=== PATIENT | male | born 1965 | race Two or more races ===

== ENCOUNTER 2023-04-22 14:00 | Inpatient (IN) | payer OTHER ==
[~2023-04-22] VITALS: Ht 170.2 cm; Wt 79.5 kg
[2023-04-22] MEDS ORDERED: INSULIN REGULAR, HUMAN 100 UNITS/ML IVP ONE (14:45)
[2023-04-22] MEDS ORDERED: SODIUM CHLORIDE 0.9% 1,000 ML IV ONE (14:45)
[2023-04-22] MEDS ORDERED: METF-1211 PO (14:46)
[2023-04-22] MEDS ORDERED: ONDANSETRON HCL 4 MG/2 ML VIAL IVP ONE (15:30)
[2023-04-22 15:36] LABS: APPEARANCE,URINE CLEAR (CLEAR); BILIRUBIN,URINE NEGATIVE (NEGATIVE); COLOR,URINE LIGHT YELLOW (YELLOW); GLUCOSE, URINE (UA) >=1000 mg/dL (NEGATIVE); LEUKOCYTE ESTERASE ,URINE NEGATIVE (NEGATIVE); NITRATE,URINE NEGATIVE (NEGATIVE); OCCULT BLOOD,URINE TRACE (NEGATIVE); PROTEIN,URINE 300-600,SEE CONFIRM mg/dL (NEGATIVE); SPECIFIC GRAVITIY, URINE 1.034 (1.003-1.030); UROBILINOGEN,URINE <=1.0 mg/dL (<=1.0)
[2023-04-22 15:36] LABS: BASOPHILS % (AUTO) 0.4 % (0.0-2.0); EOSINOPHILS % (AUTO) 0.3 % (1.0-6.0); HEMATOCRIT 43.7 % (41-53); HEMOGLOBIN 15.1 g/dL (13.5-17.5); LYMPHOCYTES # (AUTO) 1.2 K/uL (1.0-4.8); LYMPHOCYTES % (AUTO) 10.4 % (22.0-44.0); MEAN CORPUSCULAR HGB CONC 34.6 G/dL (31.0-37.0); MEAN CORPUSCULAR VOLUME 90 fL (80-100); MONOCYTES # (AUTO) 0.4 K/uL (0.1-1.0); MONOCYTES % (AUTO) 3.5 % (2.0-9.0); NEUTROPHILS # (AUTO) 10.2 K/uL (1.8-7.7); NEUTROPHILS % (AUTO) 85.4 % (40.0-70.0); PLATELET COUNT (AUTO) 201 K/uL (150-450); RED BLOOD CELL COUNT(AUTO) 4.88 MIL/uL (4.50-5.90); RED CELL DISTRIBUTION WIDTH 13.9 % (11.5-14.5)
[2023-04-22 16:00] LABS: ALANINE AMINOTRANSFERASE 45 U/L (12-78); ALBUMIN 4.2 g/dL (3.4-5.0); ALKALINE PHOSPHATASE 138 U/L (46-116); ANION GAP 12 mmol/L (8-16); ASPARTATE AMINOTRANSFERASE 23 U/L (15-37); BILIRUBIN,TOTAL 0.6 mg/dL (0.1-1.0); CALCIUM, TOTAL 9.9 mg/dL (8.8-10.5); CARBON DIOXIDE 28 mmol/L (22-29); CHLORIDE 94 mmol/L (98-107); CREATININE 1.26 mg/dL (0.60-1.30); GLOMERULAR FILTR. RATE CALC 58 mL/min (>60); LIPASE 28 U/L (16-77); POTASSIUM 3.9 mmol/L (3.5-5.1); SODIUM SERUM 134 mmol/L (136-145); TOTAL PROTEIN, SERUM 9.1 g/dL (6.4-8.2); UREA NITROGEN, BLOOD 22 mg/dL (7-18)
[2023-04-22 16:03] LABS: GLUCOSE,RANDOM 548 mg/dL (70-110); TROPONIN I-HIGH SENSITIVITY 1228 ng/L (<76)
[2023-04-22 16:11] LABS: SULFOSALICYLIC ACID,URINE 4+ (Negative)
[2023-04-22 16:12] LABS: BACTERIA,URINE None Seen /HPF (None Seen); RBC,URINE 0-2 /HPF (0-2)
[2023-04-22] MEDS ORDERED: ASPIRIN 81 MG CHEWABLE TABLET PO ONE (16:15)
[2023-04-22] MEDS ORDERED: HEPARIN SODIUM,PORCINE 5,000 UNITS/ML VIAL IVP PRN ×2 (16:30)
[2023-04-22] MEDS ORDERED: LABETALOL HCL 5 MG/ML 20 ML VIAL IVP ONE (16:30)
[2023-04-22] MEDS ORDERED: HEPARIN SODIUM 25000 UNITS/D5W 250 ML IV PRN (16:30)
[2023-04-22 16:44] LABS: INR 1.1 (0.9-1.1); PROTHROMBIN TIME 11.7 SEC (9.4-11.6)
[2023-04-22] MEDS ORDERED: MORPHINE SULFATE 2 MG/ML SYRINGE IVP PRN (17:00)
[2023-04-22] MEDS ORDERED: INSULIN GLARGINE,HUM.REC.ANLOG 100 UNITS/ML SQ SCH (17:00)
[2023-04-22] MEDS ORDERED: DEXTROSE 50%-WATER 25 GM/50 ML SYRINGE IVP PRN (17:00)
[2023-04-22] MEDS ORDERED: INSULIN LISPRO 100 UNITS/ML SQ PRN (17:00)
[2023-04-22] MEDS ORDERED: ONDANSETRON HCL 4 MG/2 ML VIAL IVP PRN (17:00)
[2023-04-22 18:08] LABS: COVID AG,FIA SOURCE NASAL SWAB
[2023-04-22 18:34] LABS: INFLUENZA TYPE A NEGATIVE FOR TYPE A (NEGATIVE); INFLUENZA TYPE B NEGATIVE FOR TYPE B (NEGATIVE); SARS-COV2 (COVID) ANTIGEN,FIA Negative (Negative)
[2023-04-22 18:49] VITALS: BP 178/95; PULSE 70; RESP 20; TEMP 98.4; O2SAT 99
[2023-04-22] MEDS: ATORVASTATIN CALCIUM 40 MG TABLET PO SCH (18:58)
[2023-04-22] MEDS: LISINOPRIL 20 MG TABLET PO SCH (18:58)
[2023-04-22 19:46] LABS: GLUCOMETER DEV NAME(LOC) 5S.2C; GLUCOSE,POINT OF CARE 474 MG/DL (70-110)
[2023-04-22 19:53] VITALS: BP 171/90; PULSE 72; RESP 20; TEMP 98.3
[2023-04-22 20:31] LABS: GLUCOMETER DEV NAME(LOC) 5S.2C; GLUCOSE,POINT OF CARE 502 MG/DL (70-110)
[2023-04-22] MEDS: FAMOTIDINE 20 MG TABLET PO SCH (20:32)
[2023-04-22] MEDS: DOCUSATE SODIUM 100 MG CAPSULE PO SCH (20:32)
[2023-04-22] MEDS: CARVEDILOL 6.25 MG TABLET PO SCH (20:32)
[2023-04-22] MEDS: INSULIN GLARGINE,HUM.REC.ANLOG 100 UNITS/ML SQ SCH (20:37)
[2023-04-22] MEDS: INSULIN LISPRO 100 UNITS/ML SQ PRN (20:38)
[2023-04-22] MEDS: HydrALAZINE HCL 20 MG/ML VIAL IVP PRN (23:28)
[2023-04-23] VITALS (7 sets, daily range): BP systolic 133–184; BP diastolic 62–111; PULSE 61–87; RESP 18–22; TEMP 98.1–98.6
[2023-04-23] MEDS: INSULIN LISPRO 100 UNITS/ML SQ PRN ×4 (06:19→20:43)
[2023-04-23 06:34] LABS: BASOPHILS % (AUTO) 0.6 % (0.0-2.0); EOSINOPHILS % (AUTO) 1.9 % (1.0-6.0); HEMATOCRIT 37.1 % (41-53); LYMPHOCYTES # (AUTO) 2.8 K/uL (1.0-4.8); LYMPHOCYTES % (AUTO) 26.4 % (22.0-44.0); MEAN CORPUSCULAR HEMOGLOBIN 31.2 pg (26.0-34.0); MEAN CORPUSCULAR HGB CONC 35.3 G/dL (31.0-37.0); MEAN CORPUSCULAR VOLUME 89 fL (80-100); MONOCYTES # (AUTO) 0.8 K/uL (0.1-1.0); MONOCYTES % (AUTO) 8.1 % (2.0-9.0); NEUTROPHILS # (AUTO) 6.6 K/uL (1.8-7.7); PLATELET COUNT (AUTO) 193 K/uL (150-450); RED BLOOD CELL COUNT(AUTO) 4.19 MIL/uL (4.50-5.90); WHITE BLOOD COUNT (AUTO) 10.5 K/uL (4.5-11.0)
[2023-04-23 06:36] LABS: GLUCOMETER DEV NAME(LOC) 5S.1B; GLUCOSE,POINT OF CARE 310 MG/DL (70-110)
[2023-04-23 07:05] LABS: HEMOGLOBIN 13.1 g/dL (13.5-17.5)
[2023-04-23] MEDS: CARVEDILOL 6.25 MG TABLET PO SCH ×2 (08:57→20:43)
[2023-04-23] MEDS: LISINOPRIL 20 MG TABLET PO SCH (08:57)
[2023-04-23] MEDS: DOCUSATE SODIUM 100 MG CAPSULE PO SCH ×2 (08:57→20:42)
[2023-04-23] MEDS: FAMOTIDINE 20 MG TABLET PO SCH ×2 (08:57→20:43)
[2023-04-23] MEDS: ATORVASTATIN CALCIUM 40 MG TABLET PO SCH (08:57)
[2023-04-23] MEDS: INSULIN GLARGINE,HUM.REC.ANLOG 100 UNITS/ML SQ SCH ×2 (08:58→20:46)
[2023-04-23] MEDS ORDERED: HEPARIN SODIUM,PORCINE 5,000 UNITS/ML VIAL IVP ONE (09:15)
[2023-04-23] MEDS ORDERED: HEPARIN SODIUM,PORCINE 5,000 UNITS/ML VIAL IVP PRN ×2 (09:15)
[2023-04-23] MEDS: HEPARIN SODIUM 25000 UNITS/D5W 250 ML IV PRN (09:29)
[2023-04-23 11:12] LABS: INR 1.1 (0.9-1.1); PROTHROMBIN TIME 11.8 SEC (9.4-11.6)
[2023-04-23] MEDS: HydrALAZINE HCL 20 MG/ML VIAL IVP PRN ×2 (14:38→23:05)
[2023-04-23 15:41] LABS: TROPONIN I-HIGH SENSITIVITY 1217 ng/L (<76)
[2023-04-23] MEDS: ACETAMINOPHEN 325 MG TABLET PO PRN (20:42)
[2023-04-23 22:57] LABS: GLUCOMETER DEV NAME(LOC) 5S.1B; GLUCOSE,POINT OF CARE 234 MG/DL (70-110)
[2023-04-23 22:57] LABS: GLUCOMETER DEV NAME(LOC) 5S.2C; GLUCOSE,POINT OF CARE 237 MG/DL (70-110)
[2023-04-23 22:57] LABS: GLUCOMETER DEV NAME(LOC) 5S.1B; GLUCOSE,POINT OF CARE 254 MG/DL (70-110)
[2023-04-24 00:10] VITALS: BP 142/62; PULSE 71; RESP 18; TEMP 97.7
[2023-04-24] MEDS: HEPARIN SODIUM 25000 UNITS/D5W 250 ML IV PRN (02:42)
[2023-04-24 05:26] VITALS: BP 179/87; PULSE 68; RESP 18; TEMP 98.1
[2023-04-24] MEDS: INSULIN LISPRO 100 UNITS/ML SQ PRN ×3 (05:40→21:12)
[2023-04-24 06:44] LABS: BASOPHILS % (AUTO) 0.7 % (0.0-2.0); EOSINOPHILS % (AUTO) 2.8 % (1.0-6.0); HEMATOCRIT 38.1 % (41-53); HEMOGLOBIN 13.1 g/dL (13.5-17.5); LYMPHOCYTES # (AUTO) 2.5 K/uL (1.0-4.8); LYMPHOCYTES % (AUTO) 29.2 % (22.0-44.0); MEAN CORPUSCULAR HEMOGLOBIN 30.7 pg (26.0-34.0); MEAN CORPUSCULAR HGB CONC 34.4 G/dL (31.0-37.0); MEAN CORPUSCULAR VOLUME 89 fL (80-100); MONOCYTES # (AUTO) 0.7 K/uL (0.1-1.0); MONOCYTES % (AUTO) 8.4 % (2.0-9.0); NEUTROPHILS # (AUTO) 4.9 K/uL (1.8-7.7); NEUTROPHILS % (AUTO) 58.9 % (40.0-70.0); PLATELET COUNT (AUTO) 181 K/uL (150-450); RED BLOOD CELL COUNT(AUTO) 4.27 MIL/uL (4.50-5.90); RED CELL DISTRIBUTION WIDTH 14.2 % (11.5-14.5); WHITE BLOOD COUNT (AUTO) 8.4 K/uL (4.5-11.0)
[2023-04-24 08:11] VITALS: BP 149/67; PULSE 62; RESP 18; TEMP 98.3
[2023-04-24] MEDS: DOCUSATE SODIUM 100 MG CAPSULE PO SCH ×2 (09:18→20:24)
[2023-04-24] MEDS: FAMOTIDINE 20 MG TABLET PO SCH ×2 (09:18→20:24)
[2023-04-24] MEDS: LISINOPRIL 20 MG TABLET PO SCH (09:18)
[2023-04-24] MEDS: CARVEDILOL 6.25 MG TABLET PO SCH ×2 (09:18→20:24)
[2023-04-24] MEDS: ATORVASTATIN CALCIUM 40 MG TABLET PO SCH (09:18)
[2023-04-24] MEDS: INSULIN GLARGINE,HUM.REC.ANLOG 100 UNITS/ML SQ SCH ×2 (09:25→21:09)
[2023-04-24 11:41] VITALS: BP 176/63; PULSE 63; RESP 20; TEMP 98.2
[2023-04-24] MEDS ORDERED: VERAPAMIL HCL 2.5 MG/ML 2 ML VIAL ONE (12:53)
[2023-04-24] MEDS ORDERED: IOHEXOL 300 MG/ML 50 ML VIAL ONE (12:53)
[2023-04-24] MEDS ORDERED: IOHEXOL 300 MG/ML 100 ML VIAL ONE (12:54)
[2023-04-24] MEDS ORDERED: SODIUM BICARBONATE 50 MEQ/50 ML VIAL ONE (12:54)
[2023-04-24] MEDS ORDERED: NITROGLYCERIN 50 MG/D5% WATER 250 ML ONE (12:54)
[2023-04-24] MEDS ORDERED: HEPARIN SODIUM 1000 UNITS/NS 1,000 ML ONE (12:54)
[2023-04-24] MEDS ORDERED: LIDOCAINE/PF 1% 30 ML VIAL ONE (12:54)
[2023-04-24 16:06] VITALS: BP 143/77; PULSE 61; RESP 18; TEMP 98.5
[2023-04-24 19:37] VITALS: BP 179/100; PULSE 77; RESP 20; TEMP 98.2
[2023-04-24] MEDS: HydrALAZINE HCL 20 MG/ML VIAL IVP PRN (19:53)
[2023-04-24 20:26] LABS: GLUCOMETER DEV NAME(LOC) 5S.1B; GLUCOSE,POINT OF CARE 185 MG/DL (70-110)
[2023-04-24 20:26] LABS: GLUCOMETER DEV NAME(LOC) 5S.1B; GLUCOSE,POINT OF CARE 187 MG/DL (70-110)
[2023-04-24 23:21] LABS: GLUCOMETER DEV NAME(LOC) 5N.2C; GLUCOSE,POINT OF CARE 251 MG/DL (70-110)
[2023-04-25] VITALS (16 sets, daily range): BP systolic 134–243; BP diastolic 70–131; PULSE 62–85; RESP 17–20; TEMP 97.9–98.3
[2023-04-25] MEDS: HEPARIN SODIUM 25000 UNITS/D5W 250 ML IV PRN (00:39)
[2023-04-25 01:01] LABS: GLUCOMETER DEV NAME(LOC) 5S.2C; GLUCOSE,POINT OF CARE 285 MG/DL (70-110)
[2023-04-25] MEDS: ACETAMINOPHEN 325 MG TABLET PO PRN ×2 (01:59→12:38)
[2023-04-25] MEDS: INSULIN LISPRO 100 UNITS/ML SQ PRN ×4 (05:49→20:30)
[2023-04-25] MEDS ORDERED: SODIUM BICARBONATE 50 MEQ/50 ML VIAL ONE (07:57)
[2023-04-25] MEDS ORDERED: LIDOCAINE/PF 1% 30 ML VIAL ONE (07:57)
[2023-04-25] MEDS ORDERED: HEPARIN SODIUM 1000 UNITS/NS 1,000 ML ONE (07:58)
[2023-04-25] MEDS ORDERED: IOHEXOL 300 MG/ML 100 ML VIAL ONE (07:58)
[2023-04-25] MEDS ORDERED: VERAPAMIL HCL 2.5 MG/ML 2 ML VIAL ONE (08:22)
[2023-04-25] MEDS ORDERED: NITROGLYCERIN 50 MG/D5% WATER 250 ML ONE (08:22)
[2023-04-25] MEDS ORDERED: FentaNYL CITRATE PF 100 MCG/2 ML VIAL ONE (08:32)
[2023-04-25] MEDS ORDERED: MIDAZOLAM HCL 2 MG/2 ML VIAL ONE (08:32)
[2023-04-25] MEDS ORDERED: VERAPAMIL HCL 2.5 MG/ML 2 ML VIAL IARTER ONE (09:00)
[2023-04-25] MEDS ORDERED: HEPARIN SODIUM,PORCINE 1,000 UNITS/ML VIAL IVP ONE (09:00)
[2023-04-25] MEDS ORDERED: IOHEXOL 300 MG/ML 100 ML VIAL IARTER ONE (09:00)
[2023-04-25] MEDS ORDERED: FentaNYL CITRATE PF 100 MCG/2 ML VIAL IVP ONE (09:00)
[2023-04-25] MEDS ORDERED: NITROGLYCERIN/D5W 50 MG/250 ML IV BOTTLE IARTER ONE (09:00)
[2023-04-25] MEDS ORDERED: LIDOCAINE 1% 30 ML/SOD BICARB 8.4% 4 ML SQ ONE (09:00)
[2023-04-25] MEDS ORDERED: HEPARIN SODIUM 2,000 UNITS in HEPARIN SODIUM 1000 UNITS/NS 1,000 ML IARTER ONE (09:00)
[2023-04-25] MEDS ORDERED: SODIUM CHLORIDE 0.9% 500 ML IV ONE (09:00)
[2023-04-25] MEDS ORDERED: MIDAZOLAM HCL 2 MG/2 ML VIAL IVP ONE (09:00)
[2023-04-25] MEDS ORDERED: CLOPIDOGREL BISULFATE 300 MG TABLET PO ONE (10:15)
[2023-04-25] MEDS: HydrALAZINE HCL 20 MG/ML VIAL IVP PRN (10:16)
[2023-04-25] MEDS: DOCUSATE SODIUM 100 MG CAPSULE PO SCH ×2 (10:16→20:19)
[2023-04-25] MEDS: FAMOTIDINE 20 MG TABLET PO SCH ×2 (10:16→20:19)
[2023-04-25] MEDS: ATORVASTATIN CALCIUM 40 MG TABLET PO SCH (10:17)
[2023-04-25] MEDS: INSULIN GLARGINE,HUM.REC.ANLOG 100 UNITS/ML SQ SCH ×2 (10:19→20:30)
[2023-04-25 11:06] LABS: GLUCOMETER DEV NAME(LOC) 5S.2C; GLUCOSE,POINT OF CARE 206 MG/DL (70-110)
[2023-04-25] MEDS ORDERED: LISINOPRIL 20 MG TABLET PO ONE (12:30)
[2023-04-25] MEDS ORDERED: CARVEDILOL 12.5 MG TABLET PO ONE (12:30)
[2023-04-25] MEDS: CARVEDILOL 12.5 MG TABLET PO SCH (20:19)
[2023-04-25 21:31] LABS: GLUCOMETER DEV NAME(LOC) 5S.1B; GLUCOSE,POINT OF CARE 159 MG/DL (70-110)
[2023-04-25 21:31] LABS: GLUCOMETER DEV NAME(LOC) 5S.1B; GLUCOSE,POINT OF CARE 221 MG/DL (70-110)
[2023-04-26] VITALS: BP 131/66; PULSE 83; RESP 20; TEMP 98.2
[2023-04-26 04:00] VITALS: BP 163/73; PULSE 60; RESP 20; TEMP 98.2
[2023-04-26 05:36] LABS: GLUCOMETER DEV NAME(LOC) 5S.1B; GLUCOSE,POINT OF CARE 123 MG/DL (70-110)
[2023-04-26 06:47] LABS: BASOPHILS % (AUTO) 0.7 % (0.0-2.0); EOSINOPHILS % (AUTO) 2.9 % (1.0-6.0); HEMATOCRIT 37.1 % (41-53); HEMOGLOBIN 12.8 g/dL (13.5-17.5); LYMPHOCYTES # (AUTO) 2.2 K/uL (1.0-4.8); LYMPHOCYTES % (AUTO) 26.5 % (22.0-44.0); MEAN CORPUSCULAR HGB CONC 34.6 G/dL (31.0-37.0); MEAN CORPUSCULAR VOLUME 90 fL (80-100); MONOCYTES # (AUTO) 0.7 K/uL (0.1-1.0); NEUTROPHILS # (AUTO) 5.1 K/uL (1.8-7.7); NEUTROPHILS % (AUTO) 61.9 % (40.0-70.0); PLATELET COUNT (AUTO) 178 K/uL (150-450); RED BLOOD CELL COUNT(AUTO) 4.14 MIL/uL (4.50-5.90); WHITE BLOOD COUNT (AUTO) 8.3 K/uL (4.5-11.0)
[2023-04-26 07:48] VITALS: BP 186/90; PULSE 72; RESP 19; TEMP 97.9
[2023-04-26] MEDS ORDERED: CLOPIDOGREL BISULFATE 75 MG TABLET PO SCH (09:00)
[2023-04-26] MEDS ORDERED: LISINOPRIL 20 MG TABLET PO SCH (09:00)
[2023-04-26] MEDS: FAMOTIDINE 20 MG TABLET PO SCH (09:04)
[2023-04-26] MEDS: CARVEDILOL 12.5 MG TABLET PO SCH (09:04)
[2023-04-26] MEDS: ATORVASTATIN CALCIUM 40 MG TABLET PO SCH (09:04)
[2023-04-26] MEDS: DOCUSATE SODIUM 100 MG CAPSULE PO SCH (09:04)
[2023-04-26] MEDS: INSULIN GLARGINE,HUM.REC.ANLOG 100 UNITS/ML SQ SCH (09:06)
[2023-04-26] MEDS: HydrALAZINE HCL 20 MG/ML VIAL IVP PRN (10:12)
[2023-04-26 10:15] VITALS: BP 170/88
[2023-04-26] MEDS ORDERED: INSLAN SQ (10:27)
[2023-04-26] MEDS ORDERED: CARV12 PO (10:27)
[2023-04-26] MEDS ORDERED: LISI-894 PO (10:27)
[2023-04-26] MEDS ORDERED: ASPI81TA87 PO (10:28)
[2023-04-26] MEDS ORDERED: ATOR40TA28 PO (10:29)
[2023-04-26] MEDS ORDERED: CLOP75TA60 PO (10:30)
[2023-04-26] MEDS ORDERED: AmLODIPine BESYLATE 5 MG TABLET PO SCH (10:30)
[2023-04-26] MEDS ORDERED: AMLO-257 PO (10:31)
[2023-04-26] MEDS: INSULIN LISPRO 100 UNITS/ML SQ PRN (13:05)
[2023-04-26 13:17] VITALS: BP 164/90
[2023-04-26 17:16] LABS: GLUCOMETER DEV NAME(LOC) 5N.1C; GLUCOSE,POINT OF CARE 223 MG/DL (70-110)
[2023-04-26 17:16] LABS: GLUCOMETER DEV NAME(LOC) 5N.1C; GLUCOSE,POINT OF CARE 219 MG/DL (70-110)
== END 2023-04-26 14:10 | disposition home or self-care (01) | DRG 190 ==
LOC: EMS 14:17 → 5N 17:22
PROVIDERS: ADMIT Internal Medicine; ATTEND Internal Medicine
PROC: 4A023N7 Measurement of Cardiac Sampling and Pressure, Left Heart, Percutaneous Approach (ICD-10-PCS; principal; 2023-04-25)
PROC: B2111ZZ Fluoroscopy of Multiple Coronary Arteries using Low Osmolar Contrast (ICD-10-PCS; 2023-04-25)
DX: I21.4 Non-ST elevation (NSTEMI) myocardial infarction (principal); E11.65 Type 2 diabetes mellitus with hyperglycemia; I25.10 Atherosclerotic heart disease of native coronary artery without angina pectoris; I10 Essential (primary) hypertension; Z20.822 Contact with and (suspected) exposure to COVID-19; I16.1 Hypertensive emergency; Z79.84 Long term (current) use of oral hypoglycemic drugs; Z83.3 Family history of diabetes mellitus
CPT/HCPCS: 70450; 71045; 80053; 81001; 81002; 82009; 82962; 83690; 83880; 84484; 85025; 85610; 85730; 87804; 93005; 93306; 99291; J0360; J1644; J1815; J2250; J2405; J3010; J3490; J7030; Q9967; 36415-L1; 36415-TC; Z7610